=== PATIENT | male | born 1945 | race Caucasian/White ===

== ENCOUNTER 2024-11-13 12:52 | Emergency (ER) | payer OTHER, SELFPAY ==
[2024-11-13] VITALS (33 sets, daily range): BP systolic 105–136; BP diastolic 60–81; PULSE 54–75; RESP 12–25; TEMP 36.4; O2SAT 91–100; BMI 26.5
--- NOTE | 2024-11-13 12:59 | DI.RAD.S_ITS ---
PROCEDURE: XR CHEST 1V INDICATIONS: Chest Pain TECHNIQUE: One view of the chest was acquired. COMPARISON: None. FINDINGS: Surgical changes and devices: None. Lungs and pleura: Lungs are clear. No pleural effusions or pneumothorax. Mediastinum: Mediastinal contours appear normal. Heart size is normal. Bones and chest wall: No suspicious bony lesions. Overlying soft tissues appear unremarkable. IMPRESSION: No acute cardiopulmonary pathology. Dictated by: Roldan Alberto M.D. on 11/13/2024 at 13:19 Approved by: Roldan Alberto M.D. on 11/13/2024 at 13:19
--- NOTE | 2024-11-13 13:02 | EKG_ITS ---
[place] [id number] [place] [id number] Test Date: 2024-11-13 Pat Name: Yair Juarez Department: [facility] Room: Gender: Male Bench Hand: ORLANDO KRAMER : 1945 Requested By: Order Number: [id number] Reading MD: Bud Rosen Measurements Intervals [place] Rate: 67 P: 21 IN: 228 QRS: -20 QRSD: 76 T: -4 QT: 410 QTc: 433 Interpretive Statements Sinus rhythm with 1st degree AV block Inferior infarct , age undetermined Electronically Signed On 11-13-2024 17:30:34 PDT by Bud Rosen
--- NOTE | 2024-11-13 13:12 | ED_ITS ---
HPI - General Adult General Chief complaint: Nausea/Vomiting/Diarrhea Stated complaint: Hard sweating, chills, burping x 1 day Time Seen by Provider: 11/13/24 13:07 History of Present Illness HPI narrative: The patient is a 79-year-old male with a past medical history of hypertension comes into the ED from home for evaluation of for she was not moving his you sweats, chills, hot flash. He states that this started a day ago when he was in the gym. He states that he has also been having some hiccuping burping that has since resolved. He denies any other symptoms such as headache visual disturbances chest pain shortness breath nausea vomiting abdominal pain or any other GI/ symptoms at this time. He denies any recent travel denies any recent known sick contacts Related Data Allergies Allergy/AdvReac Type Severity Reaction Status Date / Time No Known Drug Allergies Allergy Verified 11/13/24 13:12 Review of Systems Review of Systems Narrative: General: Positive hot flashes, fever, chills, burping/hiccups HEENT: Denies headache, eye drainage, eye irritation, head trauma, sore throat, voice change Cardiovascular: Denies any chest pain, palpitations, tachycardia Respiratory: Denies any shortness of breath, cough, wheeze, stridor GI/: Denies any abdominal pain, nausea, vomiting, diarrhea, bright red blood per rectum, melanotic stools, urinary frequency, urinary retention, dysuria, hematuria MSK: Denies any joint pain, muscle pains, swelling Skin: Denies any rashes, lesions, discoloration Neuro: Denies any headache, lightheadedness, dizziness, fainting, weakness Psych: Denies SI/HI Exam Narrative Exam Narrative: General: Cooperative, well-developed, not in acute distress HEENT: Normocephalic, atraumatic, PERRLA, normal sclera, eyelids normal Neck: Active full range of motion, atraumatic Chest: Normal to inspection, negative crepitus, no overlying erythema ecchymosis Respiratory: Normal respiratory effort, not in acute respiratory distress, clear to auscultation bilaterally negative cough, wheeze, tachypnea, rhonchi, rales Cardiology: Regular rate rhythm negative gallop, murmur, rubs GI/: No tenderness to palpation, soft, non rigid, normal to inspection, exam deferred MSK: Full active range of motion in all 4 extremities, atraumatic, no tenderness to palpation of any bony prominences Skin: No rashes or lesions noted Neuro: Alert awake oriented x3, moves all 4 extremities spontaneously, cranial nerves intact, able to answer all questions appropriately follows commands appropriately Psych: Cooperative, negative suicidal or homicidal ideations Initial Vital Signs Initial Vital Signs: Vital Signs Temperature 97.5 F L 11/13/24 12:55 Pulse Rate 66 11/13/24 12:55 Respiratory Rate 14 11/13/24 12:55 Blood Pressure 120/76 11/13/24 12:55 Pulse Oximetry 94 11/13/24 12:55 Oxygen Delivery Method Room Air 11/13/24 12:55 Course Orders Ordered: ED Orders 11/13/24 12:59 XR chest 1V Stat EKG-12 Lead Stat 11/13/24 13:10 Complete Blood Count AUTO DIFF Stat Comprehensive Metabolic Panel Stat Lactate (Lactic Acid) Stat Lipase Stat Magnesium Stat NT-proBNP (BNP-Adult 18+) Stat PTT Partial Thromboplastin Misha Stat Prothrombin Time INR Stat Troponin & CK Cardiac Panel Stat 11/13/24 13:12 Respiratory Panel (Film Array) Stat 11/13/24 13:23 Blood Culture Stat 11/13/24 14:14 EC echo doppler complete Stat 11/13/24 15:00 Troponin & CK Cardiac Panel Stat Sodium Chloride (Normal Saline 0.9%) 1,000 mls @ 1,000 mls/hr IV BOLUS ONE Stop: 11/13/24 15:02 Discontinued Medications Famotidine (Famotidine 20 Mg/2 Ml Vial) 20 mg IV NOW ONE Stop: 11/13/24 13:12 Last Admin: 11/13/24 14:03 Dose: 20 mg Sodium Chloride (Normal Saline 0.9%) 1,000 mls @ 1,000 mls/hr IV BOLUS ONE Stop: 11/13/24 14:10 Last Admin: 11/13/24 14:04 Dose: 1,000 mls/hr Vital Signs Vital signs: Vital Signs - 8 hr 11/13/24 12:55 Temperature 97.5 F L Pulse Rate 66 Respiratory Rate 14 Blood Pressure 120/76 Pulse Oximetry 94 Oxygen Delivery Method Room Air Medical Decision Making Lab Data 11/13/24 13:10 11/13/24 13:10 Labs: Lab Results 11/13/24 11/13/24 Range/Units 13:06 13:10 WBC 11.2 H (4.5-11.0) X10^3/uL RBC 4.84 (4.5-5.9) X10^6/uL Hgb 14.0 (13.5-17.5) g/dL Hct 42.3 (41-53) % MCV 87.4 (80-100) fL MCH 28.9 (26-34) PG MCHC 33.1 (30-36) % RDW 13.9 (11.6-14.8) % Plt Count 234 (150-400) X10^3/uL Neut % (Auto) 76.2 H (50-75) % Lymph % (Auto) 13.0 L (25-40) % Sullivan % (Auto) 10.4 (3-14) % Eos % (Auto) 0.1 L (2-4) % Baso % (Auto) 0.3 (0-2) % Neut # (Auto) 8500 H (5709-2357) /uL Lymph # (Auto) 1500 (9334-7143) /uL Sullivan # (Auto) 1200 H (0-900) /uL Eos # (Auto) 0 (0-450) /uL Baso # (Auto) 0 (0-100) /uL PT 12.2 (9.4-12.5) SECONDS INR 1.1 (0.9-1.3) APTT 29 (25.1-36.5) SECONDS Sodium 135 L (137-145) mmol/L Potassium 4.8 (3.4-5.1) mmol/L Chloride 102 (98-107) mmol/L Carbon Dioxide 24 (22-32) mmol/L BUN 25 H (9-20) mg/dL Creatinine 1.18 (0.66-1.25) mg/dL Estimated GFR > 60 (>60) mL/min BUN/Creatinine Ratio 21.2 (6-22) Glucose 135 H (70-99) mg/dL POC Whole Bld Glucose 137 H (70-99) mg/dL Lactate 2.0 (0.7-2.1) mmol/L Calcium 9.9 (8.4-10.2) mg/dL Magnesium 1.7 (1.6-2.3) mg/dL Total Bilirubin 0.7 (0.2-1.3) mg/dL AST 444 H (17-59) IU/L ALT 70 H (<50) IU/L Alkaline Phosphatase 62 (38-126) U/L Total Creatine Kinase 4018 H (55-170) U/L Troponin I 60.800 H* (0.01-0.034) ng/mL NT-Pro-B Natriuret Pep 1110 H (<450) pg/mL Total Protein 7.8 (6.3-8.2) g/dL Albumin 4.4 (3.5-5.0) g/dL Globulin 3.4 (1.7-4.1) g/dL Albumin/Globulin Ratio 1.3 (1.0-2.8) Lipase 45 (23-300) U/L MDM Narrative Medical decision making narrative: Patient is a 79-year-old male with a past medical history of hypertension presenting from home for evaluation of chills, hot flashes, burping/hiccuping started yesterday when he was at the gym. States that his burping/shaping has resolved however still feels hot flashes/chills. He denies any other symptoms such as headache visual disturbance chest pain shortness breath nausea vomiting abdominal pain or any other GI/ symptoms time. EKG was performed here nonischemic in nature. Lab work urinalysis chest x-ray was also performed. Chest x-ray without any acute cardiopulmonary abnormality, patient does have slightly elevated WBC 11.2 most likely reactive, creatinine GFR normal, however patient with an elevated troponin of 60.8 as well as a CK of 4018, I did have a discussion with terrestrial ecologist Dr. Gary, who believes this is more secondary to rhabdomyolysis given symptoms starting/started at the gym and patient without any active chest pain without any ischemic changes, he is recommending continued IV fluid bolus and trending troponins. He agrees that it would be reasonable to admit the patient for continued fluids and observation. At this time is not recommending initiation of heparinization given patient without any active chest pain. The patient's management plan was discussed Dr. Rosen who agrees to admit the patient to their service and assumes care of this patient at this time. Full admission orders will be placed by the primary team. Discharge Plan Departure Patient Disposition: Admitted as Observation Clinical Impression: Elevated troponin, Elevated CK Admit Date/Time: 11/13/24 14:14 Admit Provider: Bud Rosen
[2024-11-13 13:24] LABS: Add Manual Diff / Slide Review NO; Hematocrit 42.3 % (41-53); Hemoglobin 14.0 g/dL (13.5-17.5); Lymphocytes Absolute Auto 1500 /uL (1100-4500); Mean Corpuscular HGB Conc 33.1 % (30-36); Mean Corpuscular Hemoglobin 28.9 PG (26-34); Mean Corpuscular Volume 87.4 fL (80-100); Platelet Count 234 X10^3/uL (150-400)
[2024-11-13 13:34] LABS: INR 1.1 (0.9-1.3); Prothrombin Time 12.2 SECONDS (9.4-12.5)
[2024-11-13 13:37] LABS: PTT Partial Thromboplastin Tim 29 SECONDS (25.1-36.5)
[2024-11-13 13:40] LABS: Alanine Aminotransferase 70 IU/L (<50); Albumin 4.4 g/dL (3.5-5.0); Albumin Globulin Ratio 1.3 (1.0-2.8); Alkaline Phosphatase 62 U/L (38-126); Blood Urea Nitrogen 25 mg/dL (9-20); Calcium 9.9 mg/dL (8.4-10.2); Carbon Dioxide 24 mmol/L (22-32); Chloride 102 mmol/L (98-107); Estimated Glomerular Filt Rate > 60 mL/min (>60); Globulin 3.4 g/dL (1.7-4.1); Glucose 135 mg/dL (70-99); HEMOLYSIS < 15 (0-50); Lipase 45 U/L (23-300); Magnesium 1.7 mg/dL (1.6-2.3); Potassium 4.8 mmol/L (3.4-5.1); Sodium 135 mmol/L (137-145); Total Protein 7.8 g/dL (6.3-8.2)
[2024-11-13 13:41] LABS: Lactate (Lactic Acid) 2.0 mmol/L (0.7-2.1)
[2024-11-13 13:52] LABS: NT-proBNP (BNP-Adult 18+) 1110 pg/mL (<450)
[2024-11-13 13:53] LABS: Troponin I 60.800 ng/mL (0.01-0.034)
[2024-11-13 13:56] LABS: Creatine Kinase 4018 U/L (55-170)
[2024-11-13] MEDS: FAMOTIDINE 20 MG/2 ML VIAL IV (14:03)
[2024-11-13] MEDS: SODIUM CHLORIDE 0.9% 1,000 ML 1000 ML IV ×2 (14:04→14:54)
--- NOTE | 2024-11-13 14:14 | DI.ECHO.S_ITS ---
[facility] : : [address] : : [place] : : [id number] : : Phone: [phone] Echocardiogram Report + + :Name: NITESH MEJÍA Study Date: 11/13/2024 Height: 70 in : :[facility] ReadingLocation: Weight: 185 lb : : Gender: Male BSA: 2.0 m2 : :: 1945 Age: 79 yrs BP: 123/74 mmHg: :Reason For Study: ELEVATED TROPONIN : :Ordering Physician: PATRICIA, : :JET Performed By: Froy Silverio : :Referring: JET GOMEZ : + + Interpretation Summary The ejection fraction is estimated to be 40-45%. There is severe hypo to akinesis of the basal to mid inferior, basal to mid inferolateral inferior and mid to distal anterolateral urbano. Grade I diastolic dysfunction with normal left atrial pressure. The right ventricle is normal size. Right ventricular systolic function is moderately reduced. There is mild tricuspid regurgitation. The right ventricular systolic pressure is estimated to be at least 24 mmHg based on an estimated right atrial pressure of 3 mm Hg. Procedure: A two-dimensional transthoracic echocardiogram with color flow and Doppler was performed. A contrast injection of Definity was performed to improve assessment of LV function. The study quality was technically adequate. There is no prior echocardiogram noted for this patient. The patient was in normal sinus rhythm during the exam. Left Ventricle: The left ventricle is normal in size. There is normal left ventricular wall thickness. There is no ventricular septal defect visualized. The ejection fraction is estimated to be 40-45%. There is severe hypo to akinesis of the basal to mid inferior, basal to mid inferolateral inferior and mid to distal anterolateral urbano. Grade I diastolic dysfunction with normal left atrial pressure. Right Ventricle: The right ventricle is normal size. Right ventricular systolic function is moderately reduced. Atria: The left atrial size is normal. Right atrial size is normal. There is no Doppler evidence for an interatrial shunt. Mitral Valve: The mitral valve leaflets appear mildly thickened. There is trace mitral regurgitation. Aortic Valve: The aortic valve is trileaflet. The aortic valve is slightly calcified. The aortic valve opens well. There is no aortic valve stenosis. No aortic regurgitation is present. Tricuspid Valve: The tricuspid valve leaflets are thin and pliable. There is mild tricuspid regurgitation. The right ventricular systolic pressure is estimated to be at least 24 mmHg based on an estimated right atrial pressure of 3 mm Hg. Pulmonic Valve: The pulmonic valve is not well visualized. There is no pulmonic valvular regurgitation. Great Vessels: The aortic root is mildly dilated. The dimensions of the ascending aorta are normal. The pulmonary artery is normal size. The IVC is of normal diameter and collapses greater than 50% with a sniff. This suggests a low right atrial pressure of 3 mm Hg. Pericardium/ Pleura There is no pericardial effusion. There is no pleural effusion. MMode/2D Measurements & Calculations LVIDd: 5.0 cm LVOT diam: 2.3 cm LVIDs: 4.2 cm Ao root diam: 3.9 cm FS: 14.7 % asc Aorta Diam: 3.6 cm EPSS: 1.1 cm IVSd: 0.76 cm LVPWd: 0.79 cm LV neville. diameter/BSA (cm/m^2): 2.5 LV sys. diameter/BSA (cm/m^2): 2.1 LA A2 area: 16.1 cm2 RA long axis: 5.4 cm LA A4 area: 18.9 cm2 RA area: 15.9 cm2 LA length (vol): 5.7 cm RA vol: 39.3 ml LA vol: 45.5 ml RA : 19.4 ml/m2 LA vol index: 22.5 ml/m2 IVC diam: 1.7 cm RVD1 (basal): 3.8 cm RVD2 (mid): 2.8 cm TAPSE: 1.8 cm Doppler Measurements & Calculations Ao V2 max: 93.9 cm/sec LVOT Max Cheikh: 66.4 cm/sec Ao V2 mean: 69.2 cm/sec LV V1 max P.8 mmHg Ao max P.5 mmHg LV V1 VTI: 14.9 cm Ao mean P.1 mmHg YENY(I,D): 3.4 cm2 Ao V2 VTI: 17.9 cm YENY(V,D): 2.9 cm2 sev ratio: 0.83 YENY indexed to BSA (cm^2/m^2): 1.7 MV E max cheikh: 67.2 cm/sec TR max cheikh: 231.5 cm/sec MV A max cheikh: 84.4 cm/sec TR max P.4 mmHg MV E/A: 0.80 PA V2 max: 92.8 cm/sec Med Peak E' Cheikh: 5.6 cm/sec PA V2 mean: 55.2 cm/sec E/E' med: 11.9 PA mean P.4 mmHg Lat Peak E' Cheikh: 8.0 cm/sec PA pr(Accel): 65.3 mmHg E/E' lat: 8.4 E/e' average: 10.2 MV dec time: 0.18 sec SV(EMERSON): 61.8 ml Reading Physician:05:32 PM
[2024-11-13] MEDS: ASPIRIN 81 MG CHEW TAB 324 MG PO (14:29)
[2024-11-13 15:40] LABS: Troponin I 64.400 ng/mL (0.01-0.034)
[2024-11-13 15:41] LABS: Creatine Kinase 3492 U/L (55-170)
[2024-11-13 15:42] LABS: Coronavirus NL 63 Not Detected (Not Detect); SARS- CoV-2 Not Detected (Not Detecte)
--- NOTE | 2024-11-13 15:57 | P.HP_ITS ---
History of Present Illness History of Present Illness Chief complaint: Hard sweating, chills, burping x 1 day Meds Home Medications and Allergies Allergies Allergy/AdvReac Type Severity Reaction Status Date / Time No Known Drug Allergies Allergy Verified 11/13/24 13:12 Exam Vital Signs (past 8 hours): - 11/13/24 12:55 Temperature 97.5 F L Pulse Rate 66 Respiratory Rate 14 Blood Pressure 120/76 Pulse Oximetry 94 Oxygen Delivery Method Room Air Oxygen Delivery Method Room Air Objective Labs 11/13/24 13:10 11/13/24 13:10 Labs: Laboratory Results - last 24 hr 11/13/24 11/13/24 11/13/24 13:06 13:10 15:09 WBC 11.2 H RBC 4.84 Hgb 14.0 Hct 42.3 MCV 87.4 MCH 28.9 MCHC 33.1 RDW 13.9 Plt Count 234 Neut % (Auto) 76.2 H Lymph % (Auto) 13.0 L [place] % (Auto) 10.4 Eos % (Auto) 0.1 L Baso % (Auto) 0.3 Neut # (Auto) 8500 H Lymph # (Auto) 1500 [place] # (Auto) 1200 H Eos # (Auto) 0 Baso # (Auto) 0 PT 12.2 INR 1.1 APTT 29 Sodium 135 L Potassium 4.8 Chloride 102 Carbon Dioxide 24 BUN 25 H Creatinine 1.18 Estimated GFR > 60 BUN/Creatinine Ratio 21.2 Glucose 135 H POC Whole Bld Glucose 137 H Lactate 2.0 Calcium 9.9 Magnesium 1.7 Total Bilirubin 0.7 AST 444 H ALT 70 H Alkaline Phosphatase 62 Total Creatine Kinase 4018 H 3492 H Troponin I 60.800 H* 64.400 H* NT-Pro-B Natriuret Pep 1110 H Total Protein 7.8 Albumin 4.4 Globulin 3.4 Albumin/Globulin Ratio 1.3 Lipase 45 Chlamy pneumoniae PCR Not detected Adenovirus (PCR) Not detected B. pertussis DNA (PCR) Not detected B.parapertussis DNA PCR Not detected Coronavirus OC43 (PCR) Not detected Coronavirus HKU1 (PCR) Not detected Coronavirus 229E (PCR) Not detected SARS-CoV-2 (PCR) Not detected Coronavirus NL63 (PCR) Not detected Human Metapneumovir PCR Not detected Influenza Type A (PCR) Not detected Influenza Type B (PCR) Not detected M. pneumoniae (PCR) Not detected Parainfluenza 1 (PCR) Not detected Parainfluenza 2 (PCR) Not detected Parainfluenza 3 (PCR) Not detected Parainfluenza 4 (PCR) Not detected RSV (PCR) Not detected Entero/Rhino (PCR) Not detected Assessment & Plan Time-Based Coding :: [TOTAL MINUTES] spent with patient and on the chart (including review of chart, obtaining history, exam, reviewing outside data, placing orders, documenting exam and treatment plan, and counseling patient) on [DATE].
--- NOTE | 2024-11-13 16:12 | EKG_ITS ---
[address] [address] Test Date: 2024-11-13 Pat Name: Yair Juarez Department: Room: A Gender: Male Career Development Specialist: CORNELIUS : 1945 Requested By: Order Number: [id number] Reading MD: Bud Rosen Measurements Intervals [place] Rate: 60 P: 42 LA: 238 QRS: -22 QRSD: 76 T: -19 QT: 434 QTc: 434 Interpretive Statements Sinus rhythm with 1st degree AV block Low voltage QRS Inferior infarct , age undetermined Electronically Signed On 11-13-2024 17:31:27 PDT by Bud Rosen
[2024-11-13] MEDS: HEPARIN DRIP 25,000 UNIT/500 ML IV.SOLN 20.14 UNIT IV (16:53)
[2024-11-13] MEDS: HEPARIN 5,000 UNIT/ML VIAL 5000 UNIT IV (16:53)
[2024-11-13 17:23] LABS: Add Manual Diff / Slide Review NO; Hematocrit 38.3 % (41-53); Hemoglobin 12.9 g/dL (13.5-17.5); Lymphocytes Absolute Auto 1400 /uL (1100-4500); Mean Corpuscular HGB Conc 33.7 % (30-36); Mean Corpuscular Hemoglobin 29.4 PG (26-34); Mean Corpuscular Volume 87.4 fL (80-100); Platelet Count 189 X10^3/uL (150-400)
[2024-11-13 18:03] LABS: INR 1.2 (0.9-1.3); Prothrombin Time 13.9 SECONDS (9.4-12.5)
--- NOTE | 2024-11-13 18:04 | PC.NURSE ---
Lab called w/critical PTT of 225 drawn 17:14, closely after pt was started on heparin drip and received heparin bolus. Per protocol, next PTT check to be done at 23:00, 6 hours after start of drip. MD aware. Orders to continue drip and redraw PTT at next appropriate time per protocol.
--- NOTE | 2024-11-13 19:17 | PC.NURSE ---
Addendum entered by Danae Chawla RN 11/13/24 19:29: Draw to be done 6 hours post heparin start time 1653 next aptt to be done 2300 Original Note: Review with lab aptt draw too close to start of heparin bolus and drip. 1310 aptt 29 done on arrival. Hepartin bolus/drip at 1653. Advised lab next draw at 0053 or 0100, pt will be transferring to .
[2024-11-13 19:26] LABS: PTT Partial Thromboplastin Tim 225 SECONDS (25.1-36.5)
--- NOTE | 2024-11-13 21:39 | PC.NURSE ---
Reported called to OR[place]O Bailey, Maria M Morfin @ [phone].
== END 2024-11-13 21:40 | disposition admitted as inpatient to this hospital (09) ==
LOC: ED 14:05 → AC 14:15
PROVIDERS: Emergency Provider Emergency Medicine; Referring Provider Student in an Organized Health Care Education/Training Program
DX: R74.8 Abnormal levels of other serum enzymes (principal); R79.89 Other specified abnormal findings of blood chemistry
CPT/HCPCS: 36415; 71045; 80053; 82550; 82962; 83605; 83690; 83735; 83880; 84484; 85025; 85610; 85730; 87040; 87633; 93005; 96361; 96374; 96375; 99284; 99285; C8929; J1644; Q9957